=== PATIENT | male | born 1985 | race Two or more races ===

== ENCOUNTER → 2019-02-18 | Outpatient (CLI) | payer OTHER ==
[~2019-02-18] MED LIST: GASTROGRAFIN SOLUTION 30ML (Q9963) As Ordered ONE; ISOVUE-370 76% 100ML VIAL (Q9967) As Ordered ONE
--- NOTE | 2019-02-18 13:46 | REP ---
CT CHEST WITH IV CONTRAST: HISTORY: Generalized hyperhidrosis. Night sweats. CT CONTRAST DOSE: 100 mL of intravenous Isovue 370. CT FINDINGS: Digital preliminary cartridge loader radiograph is unremarkable. There is good opacification of the pulmonary arterial tree and the thoracic aorta. There is no evidence of pulmonary embolism. No aortic dissection or adrian aneurysm. The ascending aorta measures 3.8 cm in greatest anteroposterior dimension at the level of the right main pulmonary artery. No pleural or pericardial effusion is seen. No hilar or mediastinal mass or adenopathy is observed. No pulmonary parenchymal nodule or mass lesion is seen. Lung parenchyma is clear. There is a gentle dextroconvex thoracic curvature. No bony destructive lesion is seen. 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 IMPRESSION: No active cardiopulmonary disease. Electronically Signed by Ke Hinojosa MD 02/18/2019 05:59 P
--- NOTE | 2019-02-18 13:48 | REP ---
CT ABDOMEN AND PELVIS WITHOUT AND WITH IV CONTRAST: With oral contrast. HISTORY: Generalized hyperhidrosis. Night sweats. CT CONTRAST DOSE: 100 mL of intravenous Isovue 370. CT FINDINGS: Digital preliminary tree scout radiograph is unremarkable. The liver and the spleen are normal in size homogeneous in texture. No adrenal lesion is seen on either side. No abnormalities noted in the pancreas. The gallbladder is unremarkable. The kidneys enhance symmetrically and appear morphologically intact. 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 There is a small accessory upper pole artery to the left kidney as well as the main renal artery. No other vascular abnormality is observed. There is a mild levoconvex curve in the lumbar spine. No retroperitoneal adenopathy or mass lesion is observed. Seminal vesicles, prostate and urinary bladder are unremarkable. A normal appendix is seen retrocecal in the right lower quadrant. Small and large bowel loops are unremarkable. No abdominal wall defect is seen. Bone window settings show no bony destructive lesion. IMPRESSION: Negative CT study abdomen and pelvis. Incidental note is made of mild levoconvex curvature and three separate renal arteries on the right. There are two renal arteries on the left. Electronically Signed by Ke Hinojosa MD 02/18/2019 05:59 P
== END ==
LOC: M RAD 10:01
PROVIDERS: ATTEND Physician Assistant
DX: R61 Generalized hyperhidrosis (principal); M43.24 Fusion of spine, thoracic region; Q27.2 Other congenital malformations of renal artery
CPT/HCPCS: 71260; 74178; Q9963; Q9967

== ENCOUNTER → 2019-03-30 | Outpatient (CLI) | payer OTHER ==
--- NOTE | 2019-04-01 06:25 | ECHO ---
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 HEIGHT: 5 feet 10 inches. WEIGHT: 180 pounds. 2-D MEASUREMENTS: Aortic annulus: 2.0 cm Aortic root: 3.6 cm Left atrium: 3.0 cm Ventricular septum: 0.78 cm Posterior wall: 0.76 cm Left ventricle diastole: 4.8 cm Inferior vena cava: 1.2 cm (more than 50% respiratory variation) DOPPLER MEASUREMENTS: Trace aortic regurgitation Aortic valve velocity: 121 cm/sec LVOT velocity: 84.9 cm/sec Trace mitral regurgitation Mitral E velocity: 51.4 cm/sec Mitral A velocity: 65.6 cm/sec Mitral deceleration time: 143 ms Very mild tricuspid regurgitation No pulmonic regurgitation Pulmonary artery acceleration time: 102 ms MITRAL ANNULAR TISSUE DOPPLER: E prime septal: 7.8 cm/sec E prime lateral: 7.7 cm/sec DESCRIPTION: The rhythm was sinus. Image quality was fair. No pericardial effusion. This was a 2-D, M-mode, color flow Doppler and pulse wave Doppler examination and included mitral annular tissue Doppler. CONCLUSIONS: 1. Thickening suggestive of fusion or possible vegetation involving mitral chordae. No broken chordae. Mitral leaflets themselves otherwise appeared normal. Trace mitral regurgitation. 2. Mild focal thickening of a 3-cuspid aortic valve. No vegetations on the aortic valve apparent. Trace aortic regurgitation. 3. Normal left ventricle internal dimensions, regional wall motion, wall thickening, and systolic function. LVEF 60% by visual estimate. Suggestive of grade 1 LV diastolic dysfunction. 4. No pericardial effusion.
== END ==
LOC: M CARPUL 10:49
PROVIDERS: ATTEND Physician Assistant
DX: R61 Generalized hyperhidrosis (principal)